=== PATIENT | male | born 1970 | race Asian ===

== ENCOUNTER 2022-03-01 13:20 | Outpatient (CLI) | payer BC, SELFPAY ==
[2022-03-01 14:35] LABS: Albumin* 4.7 g/dL (3.3-5.0)
[2022-03-01 14:36] LABS: Chloride* 103 mmol/L (96-114); Potassium* 4.8 mmol/L (3.6-5.1); Sodium* 140 mmol/L (135-149)
[2022-03-01 14:38] LABS: Aspartate Amino Transferase* 40 U/L (12-35); Bilirubin Total* 0.9 mg/dL (0.1-1.5); Blood Urea Nitrogen* 23 mg/dL (7-30); Carbon Dioxide* 28 mmol/L (20-32); Cholesterol* 259 mg/dL (90-199); Creatinine* 1.2 mg/dL (0.5-1.5); Estimated Glomerular Filt Rate 73 ml/min
[2022-03-01 14:39] LABS: Alanine Aminotransferase* 48 U/L (4-50); Alkaline Phosphatase* 60 U/L (40-150); Calcium* 9.7 mg/dL (8.4-10.6); HDL Cholesterol* 45 mg/dL (>=40); LDL Cholesterol Calculated 155 mg/dL (<100); Triglycerides* 294 mg/dL (40-149)
[2022-03-01 15:01] LABS: Glucose* 122 mg/dL (60-115)
[2022-03-02 04:06] LABS: Free T4 Free Thyroxine* 0.87 ng/dL (0.70-1.85)
[2022-03-02 19:53] LABS: Immunoglobulin A 265 mg/dL (68-408)
[2022-03-03 07:12] LABS: Tissue Transglutaminase IgA <2 U/mL (0-3)
== END 2022-03-01 13:21 | disposition home or self-care (01) ==
PROVIDERS: PCP Family Medicine; Visit Provider Family Medicine
DX: Z00.00 Encounter for general adult medical examination without abnormal findings (principal); E03.8 Other specified hypothyroidism; K58.2 Mixed irritable bowel syndrome; R53.83 Other fatigue; K21.9 Gastro-esophageal reflux disease without esophagitis
CPT/HCPCS: 80053; 80061; 82784; 84439; 84443; 86364

== ENCOUNTER 2022-08-23 08:15 | Outpatient (RCR) | payer BC, SELFPAY | END 2022-10-31 13:13 | disposition home or self-care (01) | PROVIDERS: PCP Family Medicine; Visit Provider Family Medicine | DX: M54.2 Cervicalgia (principal); Z51.89 Encounter for other specified aftercare | CPT/HCPCS: 97110; 97140; 97161 ==

== ENCOUNTER 2022-10-26 07:54 | Outpatient (CLI) | payer BC, SELFPAY | END 2022-10-26 07:55 | disposition home or self-care (01) | PROVIDERS: PCP Family Medicine; Visit Provider Family Medicine | DX: R01.1 Cardiac murmur, unspecified (principal); I51.7 Cardiomegaly | CPT/HCPCS: 93306 ==

== ENCOUNTER 2022-12-21 09:30 | Outpatient (CLI) | payer BC, SELFPAY | END 2022-12-21 09:31 | disposition home or self-care (01) | LOC: NFLDREF 12-23 20:51 | PROVIDERS: PCP Family Medicine; Referring Provider Family Medicine; Visit Provider Family Medicine | DX: R73.03 Prediabetes (principal); E78.2 Mixed hyperlipidemia; E03.8 Other specified hypothyroidism; R53.83 Other fatigue; E66.01 Morbid (severe) obesity due to excess calories | CPT/HCPCS: 80053; 80061; 84443 ==

== ENCOUNTER 2023-03-28 07:35 | Outpatient (CLI) | payer BC, SELFPAY | END 2023-03-28 07:36 | disposition home or self-care (01) | LOC: NFLDREF 03-29 06:22 | PROVIDERS: PCP Family Medicine; Referring Provider Family Medicine; Visit Provider Family Medicine | DX: E78.2 Mixed hyperlipidemia (principal); R73.03 Prediabetes; E03.8 Other specified hypothyroidism | CPT/HCPCS: 80053; 80061; 84443 ==

== ENCOUNTER 2023-04-02 12:24 | Emergency (ER) | payer BC, SELFPAY ==
[2023-04-02 12:28] VITALS: BP 158/91; PULSE 54; RESP 16; TEMP 36.1; O2SAT 99; BMI 35.9
--- NOTE | 2023-04-02 13:01 | ED.ABDPAIN ---
HPI - Abdominal Pain General Chief Complaint: Abdominal Pain Stated Complaint: Upper abdominal pain, anxiety Time Seen by Provider: 04/02/23 12:28 History of Present Illness HPI narrative: This 53-year-old male comes in reporting episodes of upper epigastric pain that seemed to come and go over the last several days. He does report anxiety and some nausea symptoms at the same time. He states that he does go to the gym and is able to exercise without symptoms. He states that these symptoms come and go and are not related to exertion or activity. He does not report any vomiting, chest pain, shortness of breath, or lightheadedness. He arrives here with normal vital signs. Related Data Previous Rx's Medication Instructions Recorded celecoxib 100 mg capsule (Celebrex) 100 mg PO Q12H #180 caps 02/22/23 levothyroxine 150 mcg capsule 150 mcg PO DAILY #30 caps 03/18/23 lorazepam 0.5 mg tablet (Ativan) 0.5 mg PO BID PRN #10 tabs 04/02/23 Allergies Allergy/AdvReac Type Severity Reaction Status Date / Time peanut oil Allergy Severe urticaria Verified 01/03/23 09:51 Review of Systems Status of ROS Reports: 10 or more systems reviewed and unremarkable except as noted in History and below Narrative Constitutional: No fevers, no weight gain or loss. Eyes: No discharge. No vision changes. HENT: No congestion, no sore throat, no ear pain. Cardiovascular: No chest pain, no palpitations. Respiratory: No shortness of breath, no wheezes, no cough. Gastrointestinal: No vomiting, no diarrhea. Abdominal pain as described above. Genitourinary: No dysuria, no hematuria. Musculoskeletal: Normal range of motion. Skin: No rashes, no pruritis. Neurological: No dizziness, weakness, sensory change, speech change. Endo/Heme/Allergies: No bruising or bleeding. No polydipsia. Pysch: no suicidality, no insomnia. He reports symptoms of anxiety. All other systems reviewed and are negative. [facility] Medical History (Updated 04/02/23 @ 13:48 by Lucho Ordonez MD) Tension headache ?G44.209 - Tension-type headache, unspecified, not intractable (ICD-10) Neck Pain ?M54.2 - Cervicalgia (ICD-10) Sciatica of left side ?M54.32 - Sciatica, left side (ICD-10) Malaria ?B54 - Unspecified malaria (ICD-10) Helicobacter pylori infection ?A04.8 - Other specified bacterial intestinal infections (ICD-10) External hemorrhoids (09/23/08) ?K64.4 - Residual hemorrhoidal skin tags (ICD-10) Allergy to peanuts ?Z91.010 - Allergy to peanuts (ICD-10) Surgical History (Updated 02/19/22 @ 17:16 by Agapito Salcedo) Status post laparoscopic cholecystectomy ?Z90.49 - Acquired absence of other specified parts of digestive tract (ICD-10) History of colonoscopy ?Z98.890 - Other specified postprocedural states (ICD-10) Family History (Updated 02/19/22 @ 17:18 by Agapito Salcedo) Mother Diabetes High blood pressure Father Esophageal cancer Social History (Updated 02/19/22 @ 17:18 by Agapito Salcedo) Narrative: alcohol ingestion, 1-4 drinks/week does not use illicit drugs nonsmoker Smoking Status: Never smoker Little interest or pleasure in doing things: not at all Feeling down, depressed, or hopeless: not at all Exam Narrative: Exam Narrative: Constitutional: Well-developed, well-nourished, no acute distress. HEENT: Normocephalic, atraumatic. Neck: Normal range of motion. Nontender. Supple. Heart: Regular. No murmurs. Normal rate. Intact distal pulses. Lungs: Clear to auscultation. No chest discomfort. No wheezes, rhonchi, or rales. Abdomen: Normal bowel sounds. Nontender. No rebound tenderness. Genitalia: Deferred. Back: No midline tenderness. Normal range of motion. Extremities: Normal range of motion. No injury. Skin: Intact. No rash. Warm. No erythema or pallor. Neurologic: No altered sensation. No weakness. Alert and oriented. Psychiatric: No suicidality. No anxiety or depression. No insomnia. Nursing notes and vitals signs are reviewed. Const: Vital Signs, click to edit/add: Vital Signs - 24 hr 04/02/23 12:28 04/02/23 13:16 Temperature 96.9 F L Pulse Rate [Pulse Oximeter] 54 L 51 L Respiratory Rate 16 18 Blood Pressure [Ri ght Upper Arm] 158/91 H 153/89 H Pulse Oximetry 99 98 Oxygen Delivery Me thod Room Air Room Air Course Vital Signs Vital signs: Initial Vital Signs Temperature 96.9 F L 04/02/23 12:28 Temperature Source Temporal Artery Scan 04/02/23 12:28 Pulse Rate 54 L 04/02/23 12:28 Respiratory Rate 16 04/02/23 12:28 Blood Pressure 158/91 H 04/02/23 12:28 Blood Pressure Mean 113 H 04/02/23 12:28 Blood Pressure Position Sitting 04/02/23 12:28 Pulse Oximetry 99 04/02/23 12:28 Oxygen Delivery Method Room Air 04/02/23 12:28 Vital Signs Temperature 96.9 F L 04/02/23 12:28 Pulse Rate 54 L 04/02/23 12:28 Respiratory Rate 16 04/02/23 12:28 Blood Pressure 158/91 H 04/02/23 12:28 Pulse Oximetry 99 04/02/23 12:28 Oxygen Delivery Method Room Air 04/02/23 12:28 Temperature 96.9 F L 04/02/23 12:28 Pulse Rate 51 L 04/02/23 13:16 Respiratory Rate 18 04/02/23 13:16 Blood Pressure 153/89 H 04/02/23 13:16 Pulse Oximetry 98 04/02/23 13:16 Oxygen Delivery Method Room Air 04/02/23 13:16 MDM - Abdominal Pain MDM Narrative Medical decision making narrative: This 53-year-old male comes in reporting episodes of upper epigastric discomfort and associated anxiety. It seems that his anxiety symptoms are more prominent than anything else. He comes in wanting to be sure that it is not some other condition. Lab results returned with normal findings. His EKG and troponin are in normal range. This was reassuring to the patient. The patient did receive 1 tablet of Ativan 0.5 mg orally. I stated that this medicine can be rather affective short term for treating anxiety but is not a good long-term plan. I advised him to follow-up with his primary physician regarding this. I did provide prescription for 10 more tablets of Ativan 0.5 mg. Lab Data Labs: Lab Results 04/02/23 04/02/23 Range/Units 12:51 13:01 WBC 8.86 (4.50-11.00) K/uL RBC 5.40 (4.30-5.90) m/uL Hgb 15.4 (13.5-17.5) gm/dL Hct 46.2 (37.0-53.0) % MCV 86 (80-100) fL MCH 29 (26-34) pg MCHC 33 (32-36) gm/dL RDW Coeff of Prateek 12.5 (11.5-15.5) % Plt Count 255 (140-440) K/uL Neut % (Auto) 61.1 (42.0-72.0) % Lymph % (Auto) 30.7 (20-44) % [place] % (Auto) 6.4 (0.0-11.0) % Eos % (Auto) 1.2 (0.0-7.0) % Baso % (Auto) 0.3 (0.0-3.0) % Neut # (Auto) 5.40 (1.7-7.0) K/uL Lymph # (Auto) 2.72 (0.90-2.90) K/uL [place] # (Auto) 0.60 (0.00-0.90) K/UL Eos # (Auto) 0.11 (0.00-0.50) K/uL Baso # (Auto) 0.03 (0.00-0.30) K/uL Abs Immat Gran (auto) 0.03 (0.00-0.30) K/uL Imm/Tot Granulo (auto) 0.3 % Sodium 137 (135-149) mmol/L Potassium 4.5 (3.6-5.1) mmol/L Chloride 102 (96-114) mmol/L Carbon Dioxide 27 (20-32) mmol/L Anion Gap 8 (7-15) mEq/L BUN 24 (7-30) mg/dL Creatinine 1.1 (0.5-1.5) mg/dL Estimated Creat Clear 81.11 Estimated GFR 81 ml/min Glucose 120 H (60-115) mg/dL Calcium 9.4 (8.4-10.6) mg/dL POC Troponin I 0.00 L (0.01-0.04) ng/ml ECG Data Attestation: I personally reviewed and interpreted this ECG as follows: Interpretation: Normal sinus rhythm. Rate is 52 beats per minute. There are no ST or T-wave abnormalities. Discharge Plan Discharge Clinical Impression: Anxiety, Abdominal pain Patient Disposition: Home, Self-Care Condition: Stable Additional Instructions: Take medication as needed and indicated. Recommended to use a proton pump inhibitor such as Prilosec, Nexium, or Prevacid also as needed and directed. Follow up with MD for ongoing management. Return if worsening. Prescriptions: New lorazepam [Ativan] 0.5 mg tablet 0.5 mg PO BID PRNQty: 10 0RF No Action celecoxib [Celebrex] 100 mg capsule 100 mg PO Q12H Qty: 180 3RF levothyroxine 150 mcg capsule 150 mcg PO DAILY Qty: 30 0RF Follow Up/Referrals: Yaneli Benitez DO [Primary Care Provider] - Stand Alone Forms: [employer] Info Instructions
[2023-04-02 13:13] LABS: Basophils Absolute Auto 0.03 K/uL (0.00-0.30); Basophils Percent Auto 0.3 % (0.0-3.0); Eosinophils Absolute Auto 0.11 K/uL (0.00-0.50); Eosinophils Percent Auto 1.2 % (0.0-7.0); Hematocrit 46.2 % (37.0-53.0); Hemoglobin* 15.4 gm/dL (13.5-17.5); Immature Granulocytes Abs Auto 0.03 K/uL (0.00-0.30); Immature Granulocytes Pct Auto 0.3 %; Lymphocytes Absolute Auto 2.72 K/uL (0.90-2.90); Lymphocytes Percent Auto 30.7 % (20-44); Mean Corpuscular HGB Conc 33 gm/dL (32-36); Mean Corpuscular Hemoglobin 29 pg (26-34); Mean Corpuscular Volume 86 fL (80-100); Monocytes Percent Auto 6.4 % (0.0-11.0); Neutrophils Percent Auto 61.1 % (42.0-72.0); Platelet Count* 255 K/uL (140-440); RDW Coefficient of Variation % 12.5 % (11.5-15.5); White Blood Count* 8.86 K/uL (4.50-11.00)
[2023-04-02 13:16] VITALS: BP 153/89; PULSE 51; RESP 18; O2SAT 98
[2023-04-02 13:16] LABS: Slide Review Reflex No
[2023-04-02 13:22] LABS: Chloride* 102 mmol/L (96-114); Potassium* 4.5 mmol/L (3.6-5.1); Sodium* 137 mmol/L (135-149)
[2023-04-02 13:25] LABS: Anion Gap 8 mEq/L (7-15); Blood Urea Nitrogen* 24 mg/dL (7-30); Carbon Dioxide* 27 mmol/L (20-32); Creatinine* 1.1 mg/dL (0.5-1.5); Est. Creatinine Clearance* 81.11; Estimated Glomerular Filt Rate 81 ml/min; Glucose* 120 mg/dL (60-115)
[2023-04-02 13:26] LABS: Calcium* 9.4 mg/dL (8.4-10.6)
[2023-04-02] MEDS: LORazepam 0.5 MG TABLET PO (14:03)
== END 2023-04-02 14:03 | disposition home or self-care (01) ==
PROVIDERS: Emergency Provider Emergency Medicine Emergency Medical Services; PCP Family Medicine
DX: R10.9 Unspecified abdominal pain (principal); F41.9 Anxiety disorder, unspecified
CPT/HCPCS: 36415; 80048; 84484; 85025; 93005; 99284; A9270

== ENCOUNTER 2023-04-09 07:54 | Outpatient (CLI) | payer BC, SELFPAY ==
[2023-04-09 10:59] VITALS: BP 124/82; PULSE 83; RESP 16
--- NOTE | 2023-04-09 11:44 | W.PM.STED ---
Stress Test Note Date Date of test: 04/09/23 Providers Primary care provider: Yaneli Benitez Stress test physician: Sherman Mcgrath Stress Test Note Stress test ordered: Stress Myoview Indication for test: Chest pain Results discussion: Patient is a very nice 53-year-old gentleman who presents for the above test after discussion the risks benefits and side effects, he would like to proceed. Cardiac stress test medical history form is reviewed entirely. EKG shows normal sinus rhythm with a ventricular rate of 59, no acute ST wave changes are noted. Blood pressure 144/78 P standard [place] protocol is obtained over a 10 minute period, test is terminated because of fulfillment of protocol, and leg fatigue. Metabolic equivalent was 11.7 with a maximum heart rate of 168 which is 117% of the target. During this test he had no chest pain no anginal equivalents. During this test there is no specific ST wave changes suggestive of ischemia, there is no dysrhythmias, he recovered uneventfully Impression: Negative electrographic portion of stress Myoview, conditioning was felt to be good Follow up suggested: Await nuclear images clinical correlation with these will be needed. Patient exercised to a good level, he left this testing facility in excellent condition
== END 2023-04-09 11:00 | disposition home or self-care (01) ==
LOC: STRESS 07:55
PROVIDERS: PCP Family Medicine; Visit Provider Family Medicine
DX: R07.89 Other chest pain (principal); F41.9 Anxiety disorder, unspecified
CPT/HCPCS: 78452; 93016; 93017; A9500

== ENCOUNTER 2023-04-15 07:30 | Outpatient (CLI) | payer BC, SELFPAY ==
--- NOTE | 2023-04-15 08:00 | CT_ITS ---
[facility] [address] [facility] [address] Phone:?[phone] Fax:?[phone] Referring Physician Information: Yaneli Benitez D.O. [address] [facility] [address] Phone:?[phone] Fax:?[phone] Patient:Belkis Bliss Fatoumata.B:?1970 Sex:?Male Phone:?[phone] [facility] MRN:?[id number] Exam Date:?04/15/2023 EXAM: CT ABDOMEN AND PELVIS WITH CONTRAST CLINICAL INFORMATION: Unspecified abdominal pain, previous cholecystectomy TECHNICAL INFORMATION: After IV injection of 122 mL of Isovue-370, axial sections were obtained through the abdomen and pelvis. Reformations were obtained in the coronal and sagittal planes. No immediate complications. COMPARISON: 11/23/2019 INTERPRETATION: Lung Bases: Clear. Abdomen: The liver, pancreas, spleen and adrenal glands appear unremarkable. The gallbladder is surgically absent. No biliary duct dilation. The kidneys are symmetrically enhancing. No hydronephrosis. The colon is mostly decompressed. Minimal thickening of the sigmoid colon. Some fluid is present in the colon. Normal appendix. Nondistended stomach and duodenum. No abdominal or pelvic lymphadenopathy. No ascites. Normal vasculature. Small fat-containing umbilical hernia. The neck of the hernia sac measures 1.4 cm. Pelvis: No significant bladder wall thickening. Normal size prostate gland. Musculoskeletal: No suspicious osseous findings. CONCLUSION: Minimal thickening of the sigmoid colon which may reflect mild infectious or inflammatory colitis. A small amount of fluid is present in the colon suggestive of diarrhea. [facility] is committed to minimizing radiation exposure while maintaining high-quality CT images. Technologists adjust the mA and/or kV according to each patient's size to optimize dose. Since we began voluntarily reporting to the [employer]'s Dose Index Registry, our average CT doses have been consistently lower than the national average. Electronically signed on 04/18/2023 2:56:00 PM by Juan Carlos Ramirez D.O
== END 2023-04-15 07:31 | disposition home or self-care (01) ==
LOC: CT 07:30
PROVIDERS: PCP Family Medicine; Visit Provider Family Medicine
DX: R10.9 Unspecified abdominal pain (principal)
CPT/HCPCS: 74177; Q9967

== ENCOUNTER 2023-04-25 07:59 | Outpatient (CLI) | payer BC, SELFPAY | END 2023-04-25 08:00 | disposition home or self-care (01) | LOC: NFLDREF 05-07 18:43 | PROVIDERS: PCP Family Medicine; Referring Provider Family Medicine; Visit Provider Family Medicine | DX: R10.13 Epigastric pain (principal) | CPT/HCPCS: 87338; 87505 ==

== ENCOUNTER 2023-05-24 13:17 | Outpatient (REF) | payer BC, SELFPAY ==
[2023-05-24 15:25] LABS: Vitamin D 25 Hydroxy* 26 ng/mL (30-80)
== END 2023-05-24 13:18 | disposition home or self-care (01) ==
LOC: NPINS 13:17
PROVIDERS: PCP Physician Assistant Medical; Visit Provider Registered Nurse
DX: F41.1 Generalized anxiety disorder (principal)
CPT/HCPCS: 82306

== ENCOUNTER 2023-09-26 15:12 | Outpatient (CLI) | payer BC, SELFPAY | END 2023-09-26 15:13 | disposition home or self-care (01) | LOC: NFLDREF 09-27 09:29 | PROVIDERS: PCP Physician Assistant Medical; Referring Provider Physician Assistant Medical; Visit Provider Physician Assistant Medical | DX: E78.2 Mixed hyperlipidemia (principal); E03.8 Other specified hypothyroidism; R73.03 Prediabetes | CPT/HCPCS: 84443 ==

== ENCOUNTER 2023-11-14 07:56 | Emergency (ER) | payer BC, SELFPAY ==
[2023-11-14 08:06] VITALS: BP 127/82; PULSE 55; RESP 18; TEMP 36.3; O2SAT 97; BMI 36.2
--- NOTE | 2023-11-14 09:54 | ED_ITS ---
HPI - General Adult General Date Seen: 11/14/23 Chief complaint: Abdominal Pain Stated complaint: abdominal pain Time Seen by Provider: 11/14/23 09:54 History of Present Illness HPI narrative: 53-year-old male presenting to the ER today with abdominal pain. He has a history of elevated BMI, pre diabetes, subclinical hypothyroidism, mixed high cholesterol and hypertriglyceridemia, GERD. He has a history of cholecystectomy several years ago and has had some chronic and recurrent episodes of abdominal pain ever since then. He has had workup through [facility] and then through the GI service at [facility]. Initially was thought that his pain was probably GI related. At [facility] they thought it was probably musculoskeletal abdominal pain. He is not currently on any anti acid medications or other GI meds. He now follows with the Pain Clinic in the [facility] to manage his pain. He has been on pregabalin and other meds off and on. No opiates. He notes that he has a new and different pain for about the past 3 weeks. He also has a history of GERD. He notes that he has a little bit more phlegm in his throat over the past few weeks. No definite ?heartburn. ? He has been having epigastric pain after eating. It has been happening off and on for about 3 weeks but has been more intense for the past 3 days. It typically comes and goes and often will radiate to his back. Usually lasts less than an hour. No lower abdominal pain. No constipation. No black or bloody stools. No diarrhea. Urination has been normal. No fevers. He also notes that he has anxiety he has been having some palpitations for the past several months. They have not changed in intensity or frequency lately. Related Data Home Medications ?Medication ?Instructions ?Recorded ?Confirmed mirtazapine 7.5 mg tablet See Rx Instructions PO QHS 06/18/23 08/30/23 B-complex with vitamin C 1 cap PO QDAY 08/31/23 08/31/23 magnesium 200 mg tablet 200 mg PO QDAY 08/31/23 08/31/23 omega 9-wir-irm-fish oil 60 mg-90 1 cap PO QDAY 08/31/23 08/31/23 mg-500 mg capsule (Fish Oil) zolpidem 5 mg tablet 5 mg PO QHS 08/31/23 08/31/23 pregabalin 25 mg capsule 25 mg PO 3XD 11/14/23 11/14/23 Previous Rx's ?Medication ?Instructions ?Recorded epinephrine 0.3 mg/0.3 mL 0.3 mg (0.3 mL) IM ONCE #2 ea 06/18/23 injection, auto-injector albuterol sulfate 90 mcg/actuation 2 puff inhalation Q4-6H PRN 08/30/23 aerosol inhaler shortness of breath or wheezing #1 packet levothyroxine 150 mcg tablet 150 mcg PO QDAY #90 tabs 09/30/23 omeprazole 40 mg capsule,delayed 40 mg PO DAILY #30 caps 11/14/23 release sucralfate 1 gram tablet (Carafate) 1 g PO TID PRN #30 tabs 11/14/23 Allergies Allergy/AdvReac Type Severity Reaction Status Date / Time peanut oil Allergy Severe urticaria Verified 11/14/23 10:56 [facility] Medical History (Updated 11/14/23 @ 11:54 by Gideon Joseph MD) Palpitation ?R00.2 - Palpitations (ICD-10) Bronchitis ?J40 - Bronchitis, not specified as acute or chronic (ICD-10) Anxiety ?F41.9 - Anxiety disorder, unspecified (ICD-10) Neck Pain ?M54.2 - Cervicalgia (ICD-10) Allergy to peanuts ?Z91.010 - Allergy to peanuts (ICD-10) Tension headache ?G44.209 - Tension-type headache, unspecified, not intractable (ICD-10) Sciatica of left side ?M54.32 - Sciatica, left side (ICD-10) Malaria ?B54 - Unspecified malaria (ICD-10) Helicobacter pylori infection ?A04.8 - Other specified bacterial intestinal infections (ICD-10) External hemorrhoids (09/23/08) ?K64.4 - Residual hemorrhoidal skin tags (ICD-10) Surgical History (Updated 05/06/23 @ 09:11 by Kalpana Rodriguez PA-C) History of esophagogastroduodenoscopy (EGD) ?Z98.890 - Other specified postprocedural states (ICD-10) Status post laparoscopic cholecystectomy ?Z90.49 - Acquired absence of other specified parts of digestive tract (ICD- 10) History of colonoscopy ?Z98.890 - Other specified postprocedural states (ICD-10) Family History (Updated 02/19/22 @ 17:18 by Agapito Salcedo) Mother Diabetes High blood pressure Father Esophageal cancer Social History (Updated 02/19/22 @ 17:18 by Agapito Salcedo) Narrative: alcohol ingestion, 1-4 drinks/week does not use illicit drugs nonsmoker Smoking Status: Never smoker Little interest or pleasure in doing things: not at all Feeling down, depressed, or hopeless: not at all Exam Narrative: Exam Narrative: Constitutional: Appears well-developed and well-nourished. Alert. Conversant, and he has a detailed chronological historian. Non toxic. HENT: Head: Atraumatic. Nose: Nose normal. Mouth/Throat: Oral mucosa is clear and moist. no trismus. Pharynx normal. Tonsils symmetric. No tonsillar enlargement, erythema, or exudate. Eyes: Conjunctivae normal. EOM normal. Pupils equal, round, and reactive to light. No scleral icterus. Neck: Normal range of motion. Neck supple. No tracheal deviation present. Cardiovascular: Normal rate, regular rhythm. No gallop. No friction rub. No murmur heard. Symmetric radial artery pulses Pulmonary/Chest: Effort normal. No stridor. No respiratory distress. No wheezes. No rales. No rhonchi . No tenderness. Abdominal: Soft. Bowel sounds normal. No distension. No mass. Epigastric tenderness. No rebound. No guarding. No right upper quadrant tenderness or Church sign. No CVA tenderness. Musculoskeletal: RUE: Normal range of motion. No tenderness. No deformity LUE: Normal range of motion. No tenderness. No deformity RLE: Normal range of motion. No edema. No tenderness. No deformity LLE: Normal range of motion. No edema. No tenderness. No deformity Neurological: Alert and oriented to person, place, and time. Normal strength. CN II-VII intact. No sensory deficit. GCS eye subscore is 4. GCS verbal subscore is 5. GCS motor subscore is 6. Normal coordination Skin: Skin is warm and dry. No rash noted. No pallor. Normal capillary refill. Psychiatric: Normal mood. Normal affect. Const: Vital Signs, click to edit/add: Vital Signs - 24 hr 11/14/23 08:06 Temperature 97.3 F L Pulse Rate [Pulse Oximeter] 55 L Respiratory Rate 18 Blood Pressure [Ri ght Upper Arm] 127/82 Pulse Oximetry 97 Oxygen Delivery Me thod Room Air Course Vital Signs Vital signs: Initial Vital Signs Temperature 97.3 F L 11/14/23 08:06 Temperature Source Temporal Artery Scan 11/14/23 08:06 Pulse Rate 55 L 11/14/23 08:06 Respiratory Rate 18 11/14/23 08:06 Blood Pressure 127/82 11/14/23 08:06 Blood Pressure Mean 97 11/14/23 08:06 Blood Pressure Position Sitting 11/14/23 08:06 Pulse Oximetry 97 11/14/23 08:06 Oxygen Delivery Method Room Air 11/14/23 08:06 Vital Signs Temperature 97.3 F L 11/14/23 08:06 Pulse Rate 55 L 11/14/23 08:06 Respiratory Rate 18 11/14/23 08:06 Blood Pressure 127/82 11/14/23 08:06 Pulse Oximetry 97 11/14/23 08:06 Oxygen Delivery Method Room Air 11/14/23 08:06 Temperature 97.3 F L 11/14/23 08:06 Pulse Rate 55 L 11/14/23 08:06 Respiratory Rate 18 11/14/23 08:06 Blood Pressure 127/82 11/14/23 08:06 Pulse Oximetry 97 11/14/23 08:06 Oxygen Delivery Method Room Air 11/14/23 08:06 Medications Administered Medications: Discontinued Medications Generic Name Dose Route Start Last Admin Trade Name Freq PRN Reason Stop Dose Admin Sodium Chloride 1,000 mls @ 1,000 mls/hr 11/14/23 10:00 11/14/23 12:53 0.9 % Sodium Chloride 1000 Ml IV 11/14/23 10:59 Infused .Q1H CHATA Infusion Ketorolac Tromethamine 15 mg 11/14/23 09:56 11/14/23 11:51 Ketorolac 15 Mg/Ml Inj IVP 11/14/23 09:57 Not Given ONCE ONE Lidocaine/Aluminum/Magnesium/Simeth 30 ml 11/14/23 10:24 11/14/23 10:38 Gi Cocktail (Visc Lido/Antacid) 30 Ml PO 11/14/23 10:25 30 ml ONCE ONE Administration Medical Decision Making MDM Narrative Medical decision making narrative: 53-year-old male with a complex past history including previous cholecystectomy but chronic upper abdominal pain (thought to be possibly musculoskeletal a. Previous workup through [facility], [facility], also follows with a pain clinic in the [facility] and gets trigger point injections for his pain) presenting to the Emergency Department with a new pattern of a different type of upper abdominal pain. Pain has been present intermittently for the past couple of weeks, triply triggered by food, but getting worse for the past couple of days. The differential diagnosis of abdominal pain includes: Appendicitis, Bowel Obstruction, Ulcer, Ischemia, . Retained common bile duct stone, Divertic ulitis, Pancreatitis, enteritis, diverticulitis, UA less likely would be UTI, kidney stone, amongst many other etiologies. Laboratory testing does not reveal a cause for the patient's pain. CT Imaging is noted to be normal. The exact etiology of the abdominal pain is not clear at this time. No life threatening cause or need for emergent surgery or hospital admission is detected today. The patient was advised that if symptoms do not completely resolve within another 12-24 hours re-evaluation with primary care or return to the ED is indicated. The patient also understands that if they worsen, they should return to the ER right away. I discussed the uncertainty about the diagnosis and answered the patient's questions. Abdominal pain return precautions discussed. Will try empiric prescription for omeprazole. Carafate to use p.r.n.. He will follow-up with his primary care provider to arrange outpatient endoscopy. [facility]. He was supposed to have had an outpatient endoscopy earlier this spring but decided not to go. He wants to follow-up for an endoscopy through the [place] system. Lab Data Labs: Lab Results 11/14/23 11/14/23 Range/Units 10:00 10:25 WBC 7.58 (4.50-11.00) K/uL RBC 5.69 (4.30-5.90) m/uL Hgb 16.3 (13.5-17.5) gm/dL Hct 47.8 (37.0-53.0) % MCV 84 (80-100) fL MCH 29 (26-34) pg MCHC 34 (32-36) gm/dL RDW Coeff of Prateek 12.3 (11.5-15.5) % Plt Count 233 (140-440) K/uL Neut % (Auto) 57.0 (42.0-72.0) % Lymph % (Auto) 33.5 (20-44) % Wirt % (Auto) 6.9 (0.0-11.0) % Eos % (Auto) 2.1 (0.0-7.0) % Baso % (Auto) 0.4 (0.0-3.0) % Neut # (Auto) 4.32 (1.7-7.0) K/uL Lymph # (Auto) 2.54 (0.90-2.90) K/uL Wirt # (Auto) 0.50 (0.00-0.90) K/UL Eos # (Auto) 0.16 (0.00-0.50) K/uL Baso # (Auto) 0.03 (0.00-0.30) K/uL Abs Immat Gran (auto) 0.01 (0.00-0.30) K/uL Imm/Tot Granulo (auto) 0.1 % Sodium 139 (135-149) mmol/L Potassium 4.4 (3.6-5.1) mmol/L Chloride 102 (96-114) mmol/L Carbon Dioxide 28 (20-32) mmol/L Anion Gap 9 (7-15) mEq/L BUN 18 (7-30) mg/dL Creatinine 1.1 (0.5-1.5) mg/dL Estimated Creat Clear 81.11 Estimated GFR 81 ml/min Glucose 131 H (60-115) mg/dL Calcium 9.7 (8.4-10.6) mg/dL Total Bilirubin 1.5 (0.1-1.5) mg/dL AST 33 (12-35) U/L ALT 42 (4-50) U/L Alkaline Phosphatase 60 (40-150) U/L Troponin I < 0.01 L (0.01-0.04) ng/mL Total Protein 8.4 H (6.0-8.3) g/dL Albumin 4.9 (3.3-5.0) g/dL Lipase 72 (23-300) U/L Urine Color Yellow (Yellow) Urine Appearance Clear (Clear) Urine pH 5.5 (5.0-8.5) Ur Specific Shepherd 1.015 (1.000-1.030) Urine Protein Negative (Negative) Urine Glucose (UA) Negative (Negative) Urine Ketones Negative (Negative) Urine Blood Negative (Negative) Urine Nitrite Negative (Negative) Urine Bilirubin Negative (Negative) Urine Urobilinogen 0.2 (0.2-1.0) Ur Leukocyte Esterase Negative (Negative) Urine RBC 0-2 (0-2) Urine WBC 0-2 (0-5) Ur Squamous Epith Cells Few (None-Few) Urine Bacteria None (None) Imaging Data CT scan - abdomen: Attestation: I have reviewed the pertinent imaging results. Radiologist's impression: Impression: 1. No CT evidence of an acute process involving the abdomen or pelvis. 2. Hepatic steatosis. ECG Data Attestation: I personally reviewed and interpreted this ECG as follows: Interpretation: Sinus bradycardia Rate: 52 LA: 178 QRS axis: Normal axis. Nonspecific T-wave flattening ST segment/T wave: No ST segment elevation or depression. QTc: 370 Discharge Plan Discharge Clinical Impression: Abdominal pain Patient Disposition: Home, Self-Care Condition: Stable Instructions: Abdominal Pain (ED) Additional Instructions: As we discussed, the cause of your abdominal pain is not clear at this time. The pain could be related to anxiety or could be musculoskeletal. However I suspect your pain is probably related to stomach acid conn which are irritating the inner lining of your stomach (gastritis). Please try the stomach acid medicine omeprazole once per day for the next couple of weeks and this may help your pain get better if it is, indeed, related to stomach acid. You can also use Carafate as needed for episodes of pain. Please recheck with your doctor at the pain clinic tomorrow. Please recheck with your regular primary care provider or your GI doctor within 1 week. If you have worsening pain, fever, bloody or brown vomiting, black or bloody stools, or any problems, please come back to the ER right away. If you would like to schedule an endoscopy with the [facility], you can call [phone] to schedule. Prescriptions: New omeprazole 40 mg capsule,delayed release(DR/EC) 40 mg PO DAILY Qty: 30 2RF sucralfate [Carafate] 1 gram tablet 1 g PO TID PRNQty: 30 0RF No Action mirtazapine 7.5 mg tablet See Rx Instructions PO QHS Rx Instructions: 1/2 tab orally every day at bedtime; epinephrine 0.3 mg/0.3 mL auto-injector 0.3 mg IM ONCE Qty: 2 0RF Rx Instructions: as a single dose; may repeat once albuterol sulfate 90 mcg/actuation HFA aerosol inhaler 2 puff inhalation Q4-6H PRN (Reason: shortness of breath or wheezing) Qty: 1 0RF zolpidem 5 mg tablet 5 mg PO QHS Rx Instructions: may repeat once if no response in 30-60 minutes B-complex with vitamin C Capsule 1 cap PO QDAY omega 4-nnn-owo-fish oil [Fish Oil] 60-90-500 mg capsule 1 cap PO QDAY magnesium 200 mg tablet 200 mg PO QDAY pregabalin 25 mg capsule 25 mg PO 3XD levothyroxine 150 mcg tablet 150 mcg PO QDAY Qty: 90 3RF Follow Up/Referrals: Kalpana Rodriguez PA-C [Primary Care Provider] - Stand Alone Forms: [facility] Inst[facility]
[2023-11-14 10:19] LABS: Appearance Urine Clear (Clear); Bilirubin Urine Negative (Negative); Blood Urine Negative (Negative); Color Urine Yellow (Yellow); Glucose Urine Negative (Negative); Ketones Urine Negative (Negative); Leukocyte Esterase Urine Negative (Negative); Nitrite Urine Negative (Negative); Protein Urine Negative (Negative); Specific Gravity Urine 1.015 (1.000-1.030); Urobilinogen Urine 0.2 (0.2-1.0); pH Urine 5.5 (5.0-8.5)
--- NOTE | 2023-11-14 10:24 | CRLHL7_ITS ---
For Patients: As a result of the Century Cures Act, medical imaging exams and procedure reports are released immediately into your electronic medical record. You may view this report before your referring provider. If you have questions, please contact your health care provider. Indication: EPIGASTRIC ABD PAIN TO BACK Technique: CT abdomen/pelvis with IV contrast, 123 mL Isovue 370 Comparison: CT abdomen/pelvis on April 15, 2023 Findings: Lower thorax: Unremarkable Abdomen/pelvis: Diffuse hepatic steatosis. No suspicious hepatic lesions. Postsurgical changes of cholecystectomy with no significant biliary ductal dilatation. The spleen, pancreas, adrenal glands, kidneys, ureters, bladder, prostate, seminal vesicles, and visualized external genitalia are unremarkable in appearance. There is no evidence of bowel obstruction or inflammation. The appendix is normal. No free fluid or free air. No abscess. No abdominopelvic lymphadenopathy. The vasculature is unremarkable in appearance. Soft tissue/musculoskeletal: Similar-appearing small fat containing umbilical hernia. No acute fracture or malalignment. There is some minimal degenerative changes seen throughout the spine. Impression: 1. No CT evidence of an acute process involving the abdomen or pelvis. 2. Hepatic steatosis. Please note that all CT scans at this facility use dose modulation, iterative reconstruction, and/or weight-based dosing when appropriate to reduce radiation dose to as low as reasonably achievable. Dictated by Inder Goode MD @ 11/14/2023 11:25:14 AM (Electronically Signed)
[2023-11-14] MEDS: 0.9 % SODIUM CHLORIDE 1000 ml 1,000 ML IV (10:33)
[2023-11-14 10:37] LABS: Basophils Absolute Auto 0.03 K/uL (0.00-0.30); Basophils Percent Auto 0.4 % (0.0-3.0); Eosinophils Absolute Auto 0.16 K/uL (0.00-0.50); Eosinophils Percent Auto 2.1 % (0.0-7.0); Hematocrit 47.8 % (37.0-53.0); Hemoglobin* 16.3 gm/dL (13.5-17.5); Immature Granulocytes Abs Auto 0.01 K/uL (0.00-0.30); Immature Granulocytes Pct Auto 0.1 %; Lymphocytes Absolute Auto 2.54 K/uL (0.90-2.90); Lymphocytes Percent Auto 33.5 % (20-44); Mean Corpuscular HGB Conc 34 gm/dL (32-36); Mean Corpuscular Hemoglobin 29 pg (26-34); Mean Corpuscular Volume 84 fL (80-100); Monocytes Percent Auto 6.9 % (0.0-11.0); Neutrophils Absolute Auto 4.32 K/uL (1.7-7.0); Platelet Count* 233 K/uL (140-440); RDW Coefficient of Variation % 12.3 % (11.5-15.5); Red Blood Count 5.69 m/uL (4.30-5.90); White Blood Count* 7.58 K/uL (4.50-11.00)
[2023-11-14] MEDS: GI COCKTAIL (VISC LIDO/ANTACID) 30 ML PO (10:38)
[2023-11-14 10:40] LABS: Slide Review Reflex No
[2023-11-14 10:52] LABS: RBC Urine 0-2 (0-2); Squamous Epithelial Cell Urine Few (None-Few); WBC Urine 0-2 (0-5)
[2023-11-14 10:54] LABS: Albumin* 4.9 g/dL (3.3-5.0); Chloride* 102 mmol/L (96-114)
[2023-11-14 10:55] LABS: Potassium* 4.4 mmol/L (3.6-5.1); Sodium* 139 mmol/L (135-149)
[2023-11-14 10:57] LABS: Alkaline Phosphatase* 60 U/L (40-150); Anion Gap 9 mEq/L (7-15); Aspartate Amino Transferase* 33 U/L (12-35); Bilirubin Total* 1.5 mg/dL (0.1-1.5); Blood Urea Nitrogen* 18 mg/dL (7-30); Carbon Dioxide* 28 mmol/L (20-32); Creatinine* 1.1 mg/dL (0.5-1.5); Est. Creatinine Clearance* 81.11; Estimated Glomerular Filt Rate 81 ml/min; Total Protein* 8.4 g/dL (6.0-8.3)
[2023-11-14 10:58] LABS: Alanine Aminotransferase* 42 U/L (4-50); Calcium* 9.7 mg/dL (8.4-10.6); Glucose* 131 mg/dL (60-115); Lipase* 72 U/L (23-300)
[2023-11-14 11:27] LABS: Troponin I* < 0.01 ng/mL (0.01-0.04)
== END 2023-11-14 13:06 | disposition home or self-care (01) ==
PROVIDERS: Emergency Provider Emergency Medicine; PCP Physician Assistant Medical
DX: R10.9 Unspecified abdominal pain (principal)
CPT/HCPCS: 36415; 74177; 80053; 81001; 83690; 84484; 85025; 93005; 96361; 96374; 99283; 99284; 99285; A9270; J7030; Q9967

== ENCOUNTER 2023-11-21 07:14 | Outpatient (CLI) | payer BC, SELFPAY ==
--- NOTE | 2023-11-21 08:35 | W.ANESCHARGE ---
Anesthesia Charges Start Date/Time Anesthesia Start Date: 11/21/23 Anesthesia Start Time: 08:11 Stop Date/Time Anesthesia Stop Date: 11/21/23 Anesthesia Stop Time: 08:31
--- NOTE | 2023-11-21 09:01 | W.ANESCHARGE ---
Anesthesia Charges Start Date/Time Anesthesia Start Date: 11/21/23 Anesthesia Start Time: 08:11 Stop Date/Time Anesthesia Stop Date: 11/21/23 Anesthesia Stop Time: 08:31
== END 2023-11-21 07:15 | disposition home or self-care (01) ==
LOC: OP CLINIC 07:15
PROVIDERS: PCP Physician Assistant Medical; Visit Provider Internal Medicine
DX: R10.13 Epigastric pain (principal); R13.10 Dysphagia, unspecified
CPT/HCPCS: 00731; 43239; 43251; 88305; 88342; J2704; J3490

== ENCOUNTER 2024-08-28 07:44 | Outpatient (CLI) | payer BC, SELFPAY | END 2024-08-28 07:45 | disposition home or self-care (01) | LOC: NFLDREF 08-31 15:42 | PROVIDERS: PCP Physician Assistant Medical; Referring Provider Physician Assistant Medical; Visit Provider Physician Assistant Medical | DX: Z00.00 Encounter for general adult medical examination without abnormal findings (principal); E78.2 Mixed hyperlipidemia; R73.03 Prediabetes; E03.8 Other specified hypothyroidism; R53.83 Other fatigue; Z12.5 Encounter for screening for malignant neoplasm of prostate; R79.89 Other specified abnormal findings of blood chemistry | CPT/HCPCS: 80053; 80061; 82306; 82607; 84403; 84443; G0103 ==